=== PATIENT | male | born 1995 | race Caucasian/White ===

== ENCOUNTER 2018-12-18 20:40 | Emergency (ER) | payer MEDICAID ==
[~2018-12-18] VITALS: Ht 175.3 cm; Wt 84.8 kg
[2018-12-18 21:11] VITALS: BP 148/82
--- NOTE | 2018-12-19 00:53 | NUR ---
pt to room from lobby
--- NOTE | 2018-12-19 01:00 | NUR ---
not in lobby
--- NOTE | 2018-12-19 01:29 | NUR ---
not in lobby
--- NOTE | 2018-12-19 01:40 | NUR ---
not in lobby
== END 2018-12-19 01:43 | disposition left against medical advice (07) ==
LOC: ED 21:11
DX: F41.9 Anxiety disorder, unspecified (principal); Z53.21 Procedure and treatment not carried out due to patient leaving prior to being seen by health care provider
CPT/HCPCS: 93005